=== PATIENT | female | born 1970 | race Caucasian/White ===

== ENCOUNTER → 2017-04-12 | Outpatient (CLI) | payer MEDICAID ==
[2017-04-12 08:50] LABS: Bilirubin, Delta 0.3 mg/dL (0.0-0.2); Total Bilirubin 0.6 mg/dL (0.2-1.3); Total Protein 7.2 g/dL (6.3-8.2)
== END | disposition home or self-care (01) ==
LOC: LABWHC1 07:55
PROVIDERS: ATTEND Internal Medicine
DX: E78.5 Hyperlipidemia, unspecified (principal)
CPT/HCPCS: 36415; 80061; 80076

== ENCOUNTER → 2017-08-17 | Outpatient (CLI) | payer MEDICAID ==
--- NOTE | 2017-08-17 14:40 | MR ---
EXAMINATION TYPE: MR shoulder RT wo con DATE OF EXAM: 08/17/2017 COMPARISON: NONE HISTORY: Rt shoulder pain per order. Pain with difficulty raising overhead for 4 months per patient. TECHNIQUE: Multiplanar, multisequence imaging of the right shoulder is performed without contrast. FINDINGS: Rotator Cuff: There is increased signal distal supraspinatus tendon. There is focal partial bursal an d articular surface tears seen best on paracoronal image 11. This is involving more anterior fibers o n parasagittal images. Adjacent moderate fluid is present in the subdeltoid/subacromial bursa. Infras pinatus tendon is intact and felt within normal limits. Subscapularis tendon is intact. Increased foc al fluid anterior to subscapularis tendon is noted on axial image 14, consider bursitis. Rotator cuff muscle bulk is preserved. Acromioclavicular Joint: Acromioclavicular joint is within normal limits. Distal acromion morphology is maintained. Underlying fat plane is preserved. Glenohumeral Joint: There are small to moderate-sized glenohumeral joint effusion. No significant spu rring is seen. Labrum: The labrum appears grossly intact given limitation of non-arthrogram study. Biceps Tendon: The long head of biceps is in normal location within bicipital groove. Surrounding flu id is felt in proportion to degree of glenohumeral joint effusion. Bone marrow signal: No focal abnormal marrow signal is appreciated. Other: No additional significant abnormality is appreciated. IMPRESSION: High-grade tendinosis and partial tears involving bursal and articular surface of the dis jatin supraspinatus tendon.
== END | disposition home or self-care (01) ==
LOC: RADMRIMAIN 12:00
PROVIDERS: ATTEND Internal Medicine
DX: S46.011A Strain of muscle(s) and tendon(s) of the rotator cuff of right shoulder, initial encounter (principal); M75.81 Other shoulder lesions, right shoulder

== ENCOUNTER → 2018-02-23 | Outpatient (CLI) | payer MEDICAID ==
[2018-02-23 14:33] LABS: Basophils % (A) 0 %; Eosinophils # (A) 0.1 k/uL (0-0.7); Eosinophils % (A) 1 %; HCT 36.3 % (34.0-46.0); HGB 12.1 gm/dL (11.4-16.0); Lymphocytes % (A) 32 %; MCH 32.2 pg (25.0-35.0); MCHC 33.2 g/dL (31.0-37.0); MCV 97.1 fL (80.0-100.0); Mean Platelet Volume 7.3; Monocytes # (A) 0.3 k/uL (0-1.0); Monocytes % (A) 5 %; Neutrophils # (A) 3.7 k/uL (1.3-7.7); Neutrophils % (A) 59 %; Platelet Count 263 k/uL (150-450); RBC 3.74 m/uL (3.80-5.40); RDW 13.5 % (11.5-15.5); WBC 6.2 k/uL (3.8-10.6)
--- NOTE | 2018-02-23 15:39 | XR ---
EXAMINATION TYPE: XR chest 2V DATE OF EXAM: 02/23/2018 COMPARISON: 08/13/2013 HISTORY: 48-year-old female presurgical evaluation TECHNIQUE: Frontal and lateral views FINDINGS: The cardiomediastinal silhouette, aorta, and pulmonary vasculature are within normal limits. Minimal biapical pleural-parenchymal scarring. Otherwise, lungs and pleural spaces are clear. IMPRESSION: No acute cardiopulmonary process.
== END | disposition home or self-care (01) ==
LOC: LABPAT 14:01
PROVIDERS: ATTEND Orthopaedic Surgery
DX: Z01.812 Encounter for preprocedural laboratory examination (principal); M75.41 Impingement syndrome of right shoulder
CPT/HCPCS: 71046; 80051; 85025; 93005

== ENCOUNTER → 2018-03-10 | Day surgery (SDC) | payer MEDICAID ==
[2018-03-07 10:24] VITALS: BMI 24.6
--- NOTE | 2018-03-08 10:14 | HP ---
HISTORY AND PHYSICAL CHIEF COMPLAINT: Right shoulder pain. 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 It has worsened over the past couple months. She notes anterior pain that radiates with overhead activity and at night. She has tried an injection in addition to therapy and medications. PAST MEDICAL HISTORY: Significant for hypertension. PAST SURGICAL HISTORY: Negative. CURRENT MEDICATIONS: 1. Cyclobenzaprine. 2. Ethan. 3. Norvasc. 4. Tramadol. ALLERGIES: She denies drug allergies. FAMILY HISTORY: Family history is negative. SOCIAL HISTORY: Significant for 1/2 pack per day tobacco use. REVIEW OF SYSTEMS: Sixteen-point review of systems otherwise reviewed and is noncontributory. PHYSICAL EXAMINATION: On examination, the patient is approximately 5 feet 3 inches, 140 pounds of mesomorphic habitus. HEENT exam is nonfocal. Neck is supple. On examination of her right shoulder, she is tender about the anterior subacromial space. She has moderate subacromial crepitus. Active range of motion forward elevation 155 degrees, external rotation with arm at side 60 degrees, internal rotation to T12. Motor strength is 5/5 for external rotation with arm at side, 5 minus over 5 for abduction. Shen, Neer and Speed tests are positive. Her distal neurovascular exam otherwise appears intact in the right upper extremity. X-rays to include AP and scapular outlet views of the right shoulder obtained in the office show a type 2 acromion with maintained humeral head to acromial distance. MRI report of the right shoulder shows evidence of a partial-thickness tear of the supraspinatus. IMPRESSION: Right shoulder impingement with possible partial-thickness rotator cuff tear. RECOMMENDATIONS: I talked to the patient at length regarding her treatment options. At this point, she has tried extensive conservative measures with persistence of her symptoms. At this point, she opts to proceed with surgery. We will plan to proceed with arthroscopic evaluation with probable subacromial decompression and possible rotator cuff debridement versus repair. Risks and benefits were discussed at length in layman's terms. We will likely perform that as an outpatient procedure. MMODL / IJN: [id number] /
[~2018-03-10] MED LIST: DEXAMETHASONE SOD PHOSPHATE 10 MG/ML 1 ML VIAL IV ONE; KETOROLAC 30 MG/ML 1 ML VIAL IVP ONE; LACTATED RINGERS 1,000 ML IV ONE; LACTATED RINGERS 1,000 ML IV SCH; LIDOCAINE 1% 20 ML VIAL (10MG/ML) FOR IV START INTRADERMA ONE; LIDOCAINE 1% INJ 10MG/ML (20 ML MDV) ONE; MIDAZOLAM 2 MG/2 ML VIAL IV PRN; MIDAZOLAM 2 MG/2 ML VIAL ONE; ONDANSETRON 4 MG/2 ML VIAL IVP ONE; PROPOFOL 10 MG/ML 20 ML VIAL IV ONE; ROPIVACAINE 5 MG/ML 30 ML VIAL ONE; SCOPOLAMINE 1.5MG/72HR PATCH TRANSDERM ONE; VECURONIUM 10 MG VIAL IV ONE; ceFAZolin 1,000 MG in DEXTROSE/WATER 1 50ML.BAG IV ONE; diphenhydrAMINE 50 MG/ML 1 ML VIAL IVP ONE; ePHEDrine SULFATE/0.9% NACL/PF 50 MG/5 ML SYRINGE IV ONE; fentaNYL (PF) 50 MCG/ML 2 ML AMP IV PRN; fentaNYL (PF) 50 MCG/ML 2 ML AMP ONE
[2018-03-10 06:58] VITALS: TEMP 98.6
--- NOTE | 2018-03-10 07:29 | P.ONQ ---
Anesthesiology Proc Note - PNB - Peripheral Nerve Block Performed Right Interscalene Single Time Out Performed: Yes ([id number]) Procedure Start Time: :15 Procedure Stop Time: :18 Indication: Acute Post-Operative Pain, Dx/Pain Location (Right Shoulder), Requested by physician Sedation Type: Sedate with meaningful contact maintained Preparation: Sterile Prep Position: Supine Catheter: None Needle Size: 50mm (2") Needle Gauge: 20 Technique: Ultrasound Injectate: 0.5% Ropivacaine (see comment for volume) (20ml 0.25% Ropivacaine) Blood Aspirated: No Pain Paresthesia on Injection Noted: No Resistance on Injection: Normal Events: Uneventful and Well Tolerated
--- NOTE | 2018-03-10 09:40 | P.OP ---
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 Her MRI by report showed evidence of a possible partial thickness tear of the rotator cuff. A discussion the risks and benefits of operative intervention versus continued conservative measures was made with the patient. She opted to proceed with surgery. Operative risks to include infection, neurovascular injury, development of blood clots, possible tendon rerupture, possible postoperative stiffness and need for subsequent procedures was discussed. Informed consent was obtained. Operative Findings: As below Description of Procedure: The patient was brought to the operating room, and after induction of general anesthesia examined the right shoulder. There is no gross block to passive motion. There is no gross glenohumeral instability. She is placed in a beachchair position. The bony prominences were appropriately padded. The right upper extremity was prepped and draped in normal fashion. The bony outlines the acromion, distal clavicle, and coracoid process were outlined skin marker. The glenohumeral joint was inflated with 50 mL of saline utilizing a spinal needle from posterior approach. A posterior portals made through a 5 mm skin incision 1 cm medial and inferior to the posterior lateral border of the acromion. A blunt trocar was used to easily into the joint. Diagnostic arthroscopy was performed. On inspection of the joint, the subscapularis appeared to be intact. A type I superior labral tear was noted was significant fraying. This to be back to stable base with a motorized shaver. This is done through an anterior portal was was made through a 5 mm skin incision just lateral to the coracoid process entering the joint above the subscapularis tendon. On inspection of the rotator cuff, a 3 cm tear involving supraspinatus and a portion the infraspinatus was noted with some retraction. The posterior portion the cuff appeared to be intact. The anterior labrum was intact. The inferior recess was inspected. No gross glenohumeral degenerative changes were noted. The arthroscope was then placed into the subacromial space. A lateral portal was made through a 5 mm skin incision 2 cm inferior to the anterolateral border of the acromion. The soft tissue on the undersurface the acromion was debrided with a motorized shaver and electrocautery clearly defining the anterior medial and lateral borders as well as the distal clavicle. The coracoacromial ligament was detached from the anterior acromion with electrocautery. An anterior inferior acromioplasty is performed with a motorized gloria starting anterolateral, then extending this posteriorly, then extending this medially. I was able to convert to a flat acromion. This was verified from the posterior and lateral viewing portals. On inspection the rotator cuff this is easily mobilized back to the greater tuberosity. The greater tuberosity was lightly decorticated utilizing a motorized gloria down to bleeding bony surface. I accessory superior lateral portal was made through a 4 mm skin incision just lateral to the acromion. The appropriate starting awl was utilized for placement of 4.75 mm swivel lock anchors just off the articular surface. Good purchase was obtained. #2 fiber tape that was preloaded was passed through the rotator cuff with a scorpion suture passer. A lateral row was then created crisscrossing these fiber tapes. 2 4.75 millimeter anchors were placed. Again good purchase was obtained. Final arthroscopic view showed adequate synagogue of the footprint with compression. The arthroscope was then removed. The portals were closed with simple 3-0 nylon sutures. A sterile dressing was applied in addition to an abductor brace. The patient was then awoken from general anesthesia and transferred to recovery room in good condition. Blood loss was estimated at 10 mL. No complications were incurred. Sponge and needle counts were correct at the end the case.
[2018-03-10 10:25] VITALS: RESP 16
[2018-03-10 11:09] VITALS: BP 153/96; PULSE 76
== END | disposition home or self-care (01) ==
LOC: OR 06:04
PROVIDERS: ATTEND Orthopaedic Surgery
DX: M75.41 Impingement syndrome of right shoulder (principal); M75.121 Complete rotator cuff tear or rupture of right shoulder, not specified as traumatic; S43.431A Superior glenoid labrum lesion of right shoulder, initial encounter; F17.210 Nicotine dependence, cigarettes, uncomplicated; I10 Essential (primary) hypertension; Z79.891 Long term (current) use of opiate analgesic; Z79.899 Other long term (current) drug therapy; Z79.1 Long term (current) use of non-steroidal anti-inflammatories (NSAID)
CPT/HCPCS: 81025; 29827; 29826; 29822; 64415; C1713; C1894; J2250; J1200; J1100; J2405; J2001; J3010; J1885; J0690; J2795; J2704

== ENCOUNTER → 2018-12-01 | Outpatient (CLI) | payer MEDICAID ==
[2018-12-01 10:22] LABS: Basophils % (A) 0 %; Eosinophils # (A) 0.1 k/uL (0-0.7); Eosinophils % (A) 1 %; HCT 35.7 % (34.0-46.0); HGB 11.7 gm/dL (11.4-16.0); Lymphocytes # (A) 1.7 k/uL (1.0-4.8); Lymphocytes % (A) 29 %; MCH 32.6 pg (25.0-35.0); MCHC 32.8 g/dL (31.0-37.0); MCV 99.2 fL (80.0-100.0); Monocytes # (A) 0.3 k/uL (0-1.0); Monocytes % (A) 5 %; Neutrophils # (A) 3.5 k/uL (1.3-7.7); Neutrophils % (A) 60 %; Platelet Count 217 k/uL (150-450); WBC 5.8 k/uL (3.8-10.6)
[2018-12-01 18:36] LABS: Albumin 4.3 g/dL (3.80-4.90); Albumin/Globulin Ratio 2.53 (1.20-2.10); Anion Gap 7.6 mmol/L (4.00-12.00); Calcium 9.3 mg/dL (8.7-10.3); Carbon Dioxide 26.4 mmol/L (21.6-31.8); Globulin 1.7 g/dL (1.6-3.3); LDL Cholesterol,Calculated 62.4 mg/dL (0.0-131.0); Total Bilirubin 0.5 mg/dL (0.3-1.2); VLDL Calculation 17.6 mg/dL (5.00-40.00)
== END ==
LOC: LABWHC1 09:08
PROVIDERS: ATTEND Internal Medicine
DX: Z00.00 Encounter for general adult medical examination without abnormal findings (principal); I10 Essential (primary) hypertension; E55.9 Vitamin D deficiency, unspecified
CPT/HCPCS: 36415; 80053; 80061; 82306; 85025

== ENCOUNTER → 2019-01-02 | Outpatient (CLI) | payer MEDICAID ==
--- NOTE | 2019-01-02 10:23 | ECHOF ---
Referral Reason:R01.1 undiagnosed cardiac murmurs MEASUREMENTS -------- HEIGHT: 160.0 cm WEIGHT: 65.3 kg BP: RVIDd: 2.2 cm (< 3.3) IVSd: 0.9 cm (0.6 - 1.1) LVIDd: 4.7 cm (3.9 - 5.3) LVPWd: 1.2 cm (0.6 - 1.1) IVSs: 1.2 cm LVIDs: 3.5 cm LVPWs: 1.6 cm LA Diam: 3.0 cm (2.7 - 3.8) LAESV Index (A-L): 28.01 ml/m Ao Diam: 2.2 cm (2.0 - 3.7) AV Cusp: 1.5 cm (1.5 - 2.6) LA Diam: 3.0 cm (2.7 - 3.8) MV EXCURSION: 23.991 mm (> 18.000) MV EF SLOPE: 84 mm/s (70 - 150) EPSS: 0.4 cm MV E Remi: 0.57 m/s MV DecT: 217 ms MV A Remi: 0.71 m/s MV E/A Ratio: 0.81 RAP: 5.00 mmHg RVSP: 22.37 mmHg FINDINGS -------- Sinus rhythm. This was a technically good study. LV size, wall thickness and systolic function are normal, with an EF greater than 55%. The left zaira tricular size is normal. The right ventricle is normal in size. The left atrial size is normal. The right atrial size is normal. The aortic valve is trileaflet, and appears structurally normal. No aortic stenosis or regurgitation. Mild mitral regurgitation is present. Mild tricuspid regurgitation present. There is no evidence of pulmonary hypertension. The right v entricular systolic pressure, as measured by Doppler, is 22.37mmHg. There is no pulmonic regurgitation present. The aortic root size is normal. There is no pericardial effusion. CONCLUSIONS -------- 1. LV size, wall thickness and systolic function are normal, with an EF greater than 55%. 2. The left ventricular size is normal. 3. The right ventricle is normal in size. 4. The left atrial size is normal. 5. The right atrial size is normal. 6. The aortic valve is trileaflet, and appears structurally normal. No aortic stenosis or regurgitati on. 7. Mild mitral regurgitation is present. 8. Mild tricuspid regurgitation present. 9. There is no evidence of pulmonary hypertension. 10. The right ventricular systolic pressure, as measured by Doppler, is 22.37mmHg. 11. There is no pulmonic regurgitation present. 12. The aortic root size is normal. 13. There is no pericardial effusion. BACK MAKER: Tiffanie Donnelly RDCS
== END | disposition home or self-care (01) ==
LOC: RADECHMAIN 08:21
PROVIDERS: ATTEND Internal Medicine
DX: I08.1 Rheumatic disorders of both mitral and tricuspid valves (principal)
CPT/HCPCS: 93306

== ENCOUNTER → 2019-01-22 | Outpatient (CLI) | payer MEDICAID ==
--- NOTE | 2019-01-23 10:07 | MM ---
Reason for exam: screening (asymptomatic). Last mammogram was performed 2 years and 4 months ago. History: Patient is nulliparous. Physical Findings: A clinical breast exam by your physician is recommended on an annual basis and results should be correlated with mammographic findings. MG 3D Screening Mammo W/Cad Bilateral CC and MLO view(s) were taken. Prior study comparison: October 05, 2016, bilateral MG 3d screening mammo w/cad. The breast tissue is extremely dense which could obscure a lesion on mammography. Finding: There are typically benign round, regional calcifications in both breasts. There is no discrete abnormality. ASSESSMENT: Benign, BI-RAD 2 RECOMMENDATION: Routine screening mammogram of both breasts in 1 year.
== END | disposition home or self-care (01) ==
LOC: RADMAMWWP 10:48
PROVIDERS: ATTEND Internal Medicine
DX: Z12.31 Encounter for screening mammogram for malignant neoplasm of breast (principal)
CPT/HCPCS: 77063; 77067

== ENCOUNTER 2020-02-02 | Emergency (ER) | payer MEDICAID | END 2020-02-02 13:03 | disposition home or self-care (01) | CPT/HCPCS: 71046; 87502; 99283 ==

== ENCOUNTER → 2021-08-27 | Outpatient (CLI) | payer MEDICAID, OTHER | END | disposition home or self-care (01) | LOC: LABWHC1 12:29 | PROVIDERS: ATTEND Emergency Medicine | DX: Z20.822 Contact with and (suspected) exposure to COVID-19 (principal) | CPT/HCPCS: 87635 ==

== ENCOUNTER → 2021-08-28 | Outpatient (CLI) | payer MEDICAID, OTHER | END | disposition home or self-care (01) | LOC: LABWHC1 12:40 | PROVIDERS: ATTEND Emergency Medicine | DX: Z20.822 Contact with and (suspected) exposure to COVID-19 (principal) | CPT/HCPCS: 87635 ==

== ENCOUNTER → 2021-10-06 | Outpatient (CLI) | payer MEDICAID, OTHER | END | disposition home or self-care (01) | LOC: LABWHC1 12:57 | PROVIDERS: ATTEND Emergency Medicine | DX: Z53.9 Procedure and treatment not carried out, unspecified reason (principal) ==

== ENCOUNTER → 2023-02-07 | Outpatient (CLI) | payer MEDICAID ==
--- NOTE | 2023-02-08 07:22 | MR ---
EXAMINATION TYPE: MR foot RT wo con DATE OF EXAM: 02/07/2023 COMPARISON: None. HISTORY: Right foot pain, and limited movement for 1 year. Standard multiplanar, multisequence MRI departmental protocol Multiplanar, multisequence images of the right foot were acquired without contrast. FINDINGS: Visualized plantar fascia appears within normal limits. Visualized Achilles tendon is unrem arkable. Ankle mortise symmetry is preserved. Normal sinus tarsi fat is seen. Small tibiotalar joint effusion is presumed physiologic. Midfoot joints show mild narrowing and spurring. No suspicious osseous edema is seen. Lisfranc joints are maintained. Slight hallux valgus positioning first metatarsophalangeal joint. The Castaneda's toe is present. There is some flexion and varus positioning of the distal third through fifth toes. Muscle bulk is maintained. No suspicious focal fluid collection or hematoma is seen. No significant s oft tissue swelling or subcutaneous edema is noted. IMPRESSION: No abnormal osseous edema. No obvious finding to account for patient's symptoms.
== END | disposition home or self-care (01) ==
LOC: RADMRIMAIN 15:22
PROVIDERS: ATTEND Podiatrist
DX: M24.174 Other articular cartilage disorders, right foot (principal)

== ENCOUNTER → 2023-02-11 | Outpatient (CLI) | payer MEDICAID ==
[2023-02-11 18:47] LABS: HGB 13.1 g/dL (12.0-15.0); MCH 31.8 pg (27.0-32.0); MCHC 32.8 g/dL (32.0-37.0); MCV 97.1 fL (80.0-97.0); NRBC Per 100 WBC 0 /100 WBCS (0.0-0.0); Platelet Count 270 X 10*3/uL (140-440); RBC 4.12 X 10*6/uL (4.10-5.20); RDW 12.8 % (11.5-14.5); WBC 9.98 X 10*3/uL (4.50-10.00)
[2023-02-11 19:22] LABS: African American GFR (CKD) 98.9 (60.0-200.0); Non-African American GFR(CKD) 85.4 (60.0-200.0)
[2023-02-11 19:23] LABS: Anion Gap 11.1 mmol/L (10.00-18.00); Blood Urea Nitrogen 16.5 mg/dL (9.0-27.0); Carbon Dioxide 25.9 mmol/L (20.0-27.5); Potassium 4.6 mmol/L (3.5-5.5)
== END | disposition home or self-care (01) ==
LOC: LABPAT 10:47
PROVIDERS: ATTEND Internal Medicine
DX: Z01.812 Encounter for preprocedural laboratory examination (principal); R07.9 Chest pain, unspecified; R06.02 Shortness of breath
CPT/HCPCS: 36415; 80051; 82565; 84520; 85027

== ENCOUNTER 2023-02-14 09:28 | Day surgery (SDC) | payer MEDICAID ==
[~2023-02-14 09:28] MED LIST changes: +ALPRAZolam 0.25 MG TAB PO PRN; +ALPRAZolam 0.5 MG TAB PO PRN; +ASPIRIN 325 MG TAB PO STA; -DEXAMETHASONE SOD PHOSPHATE 10 MG/ML 1 ML VIAL IV ONE; -KETOROLAC 30 MG/ML 1 ML VIAL IVP ONE; -LACTATED RINGERS 1,000 ML IV ONE; -LACTATED RINGERS 1,000 ML IV SCH; -LIDOCAINE 1% 20 ML VIAL (10MG/ML) FOR IV START INTRADERMA ONE; -LIDOCAINE 1% INJ 10MG/ML (20 ML MDV) ONE; -MIDAZOLAM 2 MG/2 ML VIAL IV PRN; -MIDAZOLAM 2 MG/2 ML VIAL ONE; +NITROGLYCERIN SL TABS 0.4 MG TAB SUBLINGUAL PRN; -ONDANSETRON 4 MG/2 ML VIAL IVP ONE; -PROPOFOL 10 MG/ML 20 ML VIAL IV ONE; -ROPIVACAINE 5 MG/ML 30 ML VIAL ONE; -SCOPOLAMINE 1.5MG/72HR PATCH TRANSDERM ONE; +SODIUM CHLORIDE 0.9% 1,000 ML in EMPTY BAG 1 BAG IV SCH; -VECURONIUM 10 MG VIAL IV ONE; -ceFAZolin 1,000 MG in DEXTROSE/WATER 1 50ML.BAG IV ONE; -diphenhydrAMINE 50 MG/ML 1 ML VIAL IVP ONE; -ePHEDrine SULFATE/0.9% NACL/PF 50 MG/5 ML SYRINGE IV ONE; -fentaNYL (PF) 50 MCG/ML 2 ML AMP IV PRN; -fentaNYL (PF) 50 MCG/ML 2 ML AMP ONE
[2023-02-14 10:08] VITALS: RESP 18; TEMP 98.4
[2023-02-14 10:27] LABS: Basophils # (A) 0.1 k/uL (0-0.2); Basophils % (A) 1 %; Eosinophils # (A) 0.1 k/uL (0-0.7); Eosinophils % (A) 1 %; HCT 41.4 % (34.0-46.0); HGB 14.3 gm/dL (11.4-16.0); Lymphocytes # (A) 2.1 k/uL (1.0-4.8); Lymphocytes % (A) 25 %; MCH 32.8 pg (25.0-35.0); MCHC 34.5 g/dL (31.0-37.0); MCV 95.1 fL (80.0-100.0); Mean Platelet Volume 7.7; Monocytes # (A) 0.4 k/uL (0-1.0); Monocytes % (A) 4 %; Neutrophils # (A) 5.4 k/uL (1.3-7.7); Neutrophils % (A) 65 %; Platelet Count 251 k/uL (150-450); RBC 4.35 m/uL (3.80-5.40); RDW 13.2 % (11.5-15.5); WBC 8.3 k/uL (3.8-10.6)
[2023-02-14 10:29] LABS: African American GFR (CKD) >90 (>60 ml/min/1.73 sqM); Anion Gap 8 mmol/L; Blood Urea Nitrogen 17 mg/dL (7-17); Calcium 9.4 mg/dL (8.4-10.2); Carbon Dioxide 25 mmol/L (22-30); Chloride 105 mmol/L (98-107); Glucose 93 mg/dL (74-99); Non-African American GFR(CKD) >90 (>60 ml/min/1.73 sqM); Potassium 4.2 mmol/L (3.5-5.1); Sodium 138 mmol/L (137-145)
[2023-02-14] MEDS ORDERED: fentaNYL (PF) 50 MCG/ML 2 ML AMP ONE (11:52)
[2023-02-14] MEDS ORDERED: HEPARIN SODIUM 1,000 UN/ML (10ML VL) ONE (11:52)
[2023-02-14] MEDS ORDERED: VERAPAMIL 2.5 MG/ML 2 ML AMP ONE (11:53)
[2023-02-14] MEDS ORDERED: LIDOCAINE 1% INJ 10MG/ML (5 ML VIAL-PF) SQ ONE (12:25)
[2023-02-14] MEDS: MIDAZOLAM 2 MG/2 ML VIAL IVP ONE ×2 (12:25→12:26)
[2023-02-14] MEDS ORDERED: fentaNYL (PF) 50 MCG/ML 2 ML AMP IVP ONE (12:25)
[2023-02-14] MEDS: VERAPAMIL SYRINGE (5 MG/10 ML) INTRAARTER ONE ×2 (12:27→12:31)
[2023-02-14] MEDS ORDERED: HEPARIN SODIUM 1,000 UN/ML (10ML VL) IVP ONE (12:30)
[2023-02-14] MEDS ORDERED: IOPAMIDOL-370 125ML BTL INJ ONE (12:34)
--- NOTE | 2023-02-14 12:59 | P.CARDCATH ---
Description of Procedure: PROCEDURES PERFORMED: Left heart catheterization, bilateral coronary angiography INDICATION: Chest pain concerning for unstable angina CONSENT:I have discussed the risks, benefits and alternative therapies for the above-mentioned procedure and for both sedation/analgesia as well as necessary blood product administration, if indicated, as they pertain to this patient. The patient has indicated understanding and acceptance of the risks and procedures discussed. PROCEDURE: After the risks, benefits and alternatives of the above mentioned procedure explained in detail with the patient, informed consent was obtained. Patient was taken to the catheterization lab and prepped and draped in usual fashion. 1% lidocaine was used to anesthetize the right radial artery. A 6- Swedish sheath was placed in the right radial artery using modified Seldinger technique. Left coronary angiography was performed with a 5-Swedish JL 3.5 cath eter and right coronary angiography was performed with a 5-Swedish JR5 catheter in various views. A 5-Swedish FR5 catheter was inserted into the left ventricle and pressure measurements were obtained. The right radial sheath was removed and a TR band was placed with hemostasis achieved. The patient tolerated the procedure well. Patient was transported back to the post catheterization holding area in stable condition. Conscious Sedation: Patient was monitored under the direct supervision of vision of myself for conscious sedation using Versed and fentanyl for a total duration of 12 minutes HEMODYNAMICS: AO: 114/76 LV: 122/3, LVEDP 11 SELECTIVE CORONARY ARTERIOGRAPHY: LEFT MAIN: The left main is a large caliber vessel which trifurcates into the LAD, ramus and circumflex. There is no significant stenosis. LEFT ANTERIOR DESCENDING CORONARY ARTERY: LAD is a large caliber vessel which wraps around to the apex. There is no significant stenosis. RAMUS INTERMEDIUS: The ramus is large caliber vessel with no significant stenosis. LEFT CIRCUMFLEX CORONARY ARTERY: Left circumflex is a moderate caliber vessel without significant stenosis. RIGHT CORONARY ARTERY: The right coronary artery is a large caliber vessel which gives off a PDA and PLV branch and is the dominant vessel. There is no significant stenosis. FINAL IMPRESSION: 1. Normal coronary arteries as described above. 2. Normal left sided filling pressures PLAN: 1. Aggressive risk factor modification per most recent ACC/AHA guidelines. 2. Follow-up in the office in 1-2 weeks.
[2023-02-14 15:55] VITALS: BP 112/76; PULSE 56
== END 2023-02-14 15:57 | disposition home or self-care (01) ==
LOC: CATHCVL 09:28
PROVIDERS: ATTEND Internal Medicine
DX: R07.9 Chest pain, unspecified (principal); I10 Essential (primary) hypertension; F17.210 Nicotine dependence, cigarettes, uncomplicated; Z82.49 Family history of ischemic heart disease and other diseases of the circulatory system; Z79.82 Long term (current) use of aspirin
CPT/HCPCS: 93458; 80048; 85025; C1769; C1894; J2250; J2001; J3010; J1644; Q9967

== ENCOUNTER → 2023-02-15 | Outpatient (CLI) | payer MEDICAID ==
--- NOTE | 2023-02-15 08:49 | US ---
EXAMINATION TYPE: US liver DATE OF EXAM: 02/15/2023 COMPARISON: CT Low Dose January 28, 2023 CLINICAL HISTORY: K76.89 LIVER NODULE. TECHNIQUE: Multiple sonographic images of the right upper quadrant are obtained. FINDINGS: EXAM MEASUREMENTS: Liver Length: 13.5 cm Gallbladder Wall: 0.3 cm CBD: 0.4 cm Right Kidney: 10.6 x 4.9 x 4.9 cm EXERCISE INSTRUCTOR NOTES: Pancreas: visualized portions wnl Liver: 1.3 x 1.1 x 1.9 cm cystic lesion with through transmission located upper left lobe. Gallbladder: at least two small non shadowing echogenic mobile stones/sludge balls Evidence for sonographic Sheldon's sign: No CBD: wnl Right Kidney: 1.3 x 1.0 x 1.3 cm parapelvic cyst. Visualized pancreas appears within normal limits. Visualized liver shows anterior 1.3 cm oval anechoi c lesion consistent with a simple thin-walled cyst. Gallbladder has 2 mobile tiny shadowing gallstone s. No pericholecystic fluid or abnormal gallbladder wall thickening. No right-sided hydronephrosis. I ncidental 1.3 cm Central simple thin-walled cyst in the right kidney. IMPRESSION: Lesion on recent CT is felt to correspond to 1.3 cm simple appearing thin-walled cyst ant eriorly on today's ultrasound.
== END | disposition home or self-care (01) ==
LOC: RADUSWWP 08:06
PROVIDERS: ATTEND Internal Medicine
DX: K76.89 Other specified diseases of liver (principal)
CPT/HCPCS: 76705

== ENCOUNTER → 2024-01-30 | Outpatient (CLI) | payer MEDICAID ==
--- NOTE | 2024-01-30 08:57 | USB ---
Reason for Exam: Additional evaluation requested from prior study. Patient History: Menarche at age 15. Patient has no children. Risk Values: Marti 5 year model risk: 1.1%. NCI Lifetime model risk: 9.7%. Technique: Method: Targeted. Prior Study Comparison: 10/05/2016 Bilateral Screening Mammogram, [facility]. 01/22/2019 Bilateral Screening Mammogram, [facility]. 12/30/2022 Bilateral MG 3D screening mammo w/cad, [facility]. Findings: The upper inner quadrant of the right breast, the lower section of the breast of the right breast, the axilla of the right breast and the retroareolar of the right breast were scanned. A complete US of all four quadrants of the breast , axilla, and retro-areolar region were reviewed. At the 2:00 position, 3 cm from the nipple, possible mammographic correlate, there is an irregular 10 x 8 x 7 mm hypoechoic lesion which is suspicious. Biopsy is recommended. At the 3:00 position, 7 cm from the nipple, benign 6 mm debris-filled cyst. At the 6:00 position, 2 cm from the nipple, there is a benign 5 mm cyst, possible mammographic correlate. Dense tissue is present throughout. No other solid or cystic lesion or axillary lymphadenopathy. Overall Assessment: Suspicious, BI-RAD 4 Management: Ultrasound Core Biopsy of the right breast. Electronically signed and approved by: Evaristo Oscar M.D. Radiologist
--- NOTE | 2024-01-30 11:27 | US ---
EXAMINATION TYPE: US abdomen limited DATE OF EXAM: 01/30/2024 COMPARISON: 02/15/2023 CLINICAL INDICATION: Female, 53 years old with history of R92.30 DENSE BREASTS, K76.89 LIVER NODULE; F/U to previous TECHNIQUE: Multiple sonographic images of the right upper quadrant are obtained. FINDINGS: EXAM MEASUREMENTS: Liver Length: 14.8 cm Gallbladder Wall: .2 cm CBD: .5 cm Right Kidney: 10.0 x 5.1 x 3.9 cm Pancreas: Tail obscured by overlying bowel gas Liver: Benign cyst anteriorly measuring 1.3 x 0.7 x 1.5 cm. Mild increased echogenicity. Gallbladder: Multiple mural-based echogenic nodules are present measuring up to 4 mm there is on the se are located along the anterior wall and fixed. No abnormal distention, wall thickening, or surroun ding fluid. Evidence for sonographic Murnoy's sigwnl no CBD: wnl Right Kidney: Benign 1.3 cm lower pole parapelvic cyst. An adjacent tiny 3 mm echogenic focus, possi ble calcification. No hydronephrosis. RESSION: 1. Scattered multiple gallbladder wall polyps measuring up to 4 mm appear more numerous. Recommend ad ditional 6-12 month follow-up to reassess. 2. Redemonstrated benign hepatic cyst measuring 1.5 cm. 3. There may be mild hepatic steatosis. Correlate with LFTs, lipid profile, and patient risk factors.
== END | disposition home or self-care (01) ==
LOC: RADMAMWWP 06:54
PROVIDERS: ATTEND Internal Medicine
DX: R92.30 Dense breasts, unspecified (principal); K76.89 Other specified diseases of liver; K82.4 Cholesterolosis of gallbladder
CPT/HCPCS: 76705; 77062; 77066

== ENCOUNTER → 2024-02-06 | Outpatient (CLI) | payer MEDICAID ==
--- NOTE | 2024-02-07 09:41 | CTL ---
EXAMINATION TYPE: CT Low Dose Lung DATE OF EXAM: 02/06/2024 9:42 AM CLINICAL INDICATION:Female, 54 years old with history of Z12.2 SCREENING LUNG CA F17.210 CURRENT SMOK ER; smoker , history of tobacco use. COMPARISON: 01/28/[address] TECHNIQUE: Multiple axial non-contrast scans were obtained from approximately the lung apices through the upper abdomen. Coronal and sagittal reformatted images were obtained. Low dose technique was uti lized. CT DLP: 84.2 mGycm, Automated exposure control for dose reduction was used. CT Contrast: Contrast used: None Oral contrast used: None FINDINGS: ======== Lack of intravenous contrast and low dose technique limits the evaluation of the vascular and soft ti ssue structures. LUNGS: No evidence of pulmonary fibrosis. No evidence of focal consolidation, pneumothorax or pleural effusion. Sizable nodules (> 6 mm): RUL: None. RML: None. RLL: None. GREGORY: None. LLL: None. AIRWAY: Patent and unremarkable. HEART: Size within normal limits. MEDIASTINUM: No gross evidence of adenopathy. VASCULATURE: No aortic aneurysm. MUSCULOSKELETAL: No acute osseous abnormalities SOFT TISSUES/LYMPH NODES: Unremarkable. LOWER NECK: No significant findings. UPPER ABDOMEN: Liver cyst is identified and stable. No acute findings in the abdomen. IMPRESSION: 1. No clinically significant pulmonary nodules. CT LUNG RAD AND CT CHEST RECOMMENDATION: Lung-Rad 2 Benign Appearance or Behavior: Continue annual sc reening with LDCT in 12 months. S Modifier (other clinically significant findings): None. Recommend smoking cessation (if current smoker), or continuation of smoking cessation (if prior smoke r). Annual screening for lung cancer with low-dose computed tomography is recommended in adults ages 55 to 77 years who have a 30 pack-year smoking history and currently smoke or have quit within the pa st 15 years. Screening should be discontinued once a person has not smoked for 15 years or develops a health problem that substantially limits life expectancy or the ability or willingness to have curat connie lung surgery. Lung rads 2021 [email or web address]
== END | disposition home or self-care (01) ==
LOC: RADCTMAIN 09:25
PROVIDERS: ATTEND Internal Medicine
DX: Z12.2 Encounter for screening for malignant neoplasm of respiratory organs (principal); F17.210 Nicotine dependence, cigarettes, uncomplicated
CPT/HCPCS: 71271

== ENCOUNTER → 2024-02-09 | Day surgery (SDC) | payer MEDICAID | LOC: RADUSWWP 12:38 | PROVIDERS: ATTEND Surgery | DX: N60.81 Other benign mammary dysplasias of right breast (principal) | CPT/HCPCS: 77065; 19083; A4648; 88305; 88341; 88342 ==

== ENCOUNTER → 2024-02-24 | Outpatient (CLI) | payer MEDICAID ==
[2024-02-24 14:13] VITALS: BP 139/84; PULSE 67; RESP 15; TEMP 98.3
--- NOTE | 2024-02-24 14:21 | P.GSCN ---
History of Present Illness Consult date: 02/24/24 Reason for Consult: Abnormal right breast ultrasound/intraductal papilloma right breast Requesting physician: John Moses History of present illness: Kristy is a 54-year-old white female seen in consultation for Dr. Moses regarding an ultrasound-guided core biopsy of the right breast. She underwent a bilateral mammogram on 01-30-2024. This revealed an area of concern in the right breast and diagnostic right breast ultrasound was recommended. She underwent a diagnostic right breast ultrasound on 01-30-2024 this revealed at the 2 o'clock position 3 cm from the nipple an irregular 10 x 8 x 7 mm hypoechoic lesion which was considered suspicious. Biopsy was recommended. At the 3 o'clock position there was a 6 mm debris-filled cyst At the 6 o'clock position there was a 5 mm cyst possible mammographic correlate The impression was abnormal lesion at 2:00 and ultrasound core biopsy recommended. Ultrasound core biopsy was performed of this area on 02-09-2024. Pathology revealed a benign intraductal papilloma. However secondary to the size of the lesion there was concern that this may be discordant and that an open biopsy with resection should be recommended. The patient had a bilateral mammogram on 01-30-2024 she did not feel anything in her breast prior to the mammogram. She has never had any surgery on her breast. She is not complaining of any recent trauma or infection in the breast. She is not complaining of any nipple discharge or skin changes. Caffeine: 3 cups coffee/day nicotine: 1/2 PPD for 30 years chocolate: occasional BCP: used about 10 years stoped in her 30's hormones: none Family History: paternal grandmother: lung smoker paternal aunt: brain cancer Hormonal History: menarche: 15 G1A1 menopause: 53 hormones: none Surgical history: Rotator cuff repair right Medical history: HTN GERD cervical disc disease Social History: nicotine: as above alcohol: occasional 2 to 3 times a week, wine drugs: none Review of Systems - Constitutional Denies fever, Denies weight loss - EENT Eyes: denies blurred vision Ears: deny: decreased hearing, tinnitus Ears, nose, mouth and throat: Denies dysphagia - Cardiovascular Denies chest pain, Denies shortness of breath - Respiratory Denies cough, Denies 7 - Gastrointestinal Reports as per HPI - Genitourinary Genitourinary: Denies dysuria, Denies hematuria Menstruation: Reports postmenopausal - Musculoskeletal Reports as per HPI - Integumentary Denies rash, Denies unusual bruising - Neurological Denies headaches, Denies syncope - Psychiatric Reports as per HPI - Endocrine Reports as per HPI - Hematologic/Lymphatic Denies easy bleeding, Denies easy bruising - Allergic/Immunologic Reports seasonal allergies Past Medical History Past Medical History: Chest Pain / Angina, GERD/Reflux, Hypertension History of Any Multi-Drug Resistant Organisms: None Reported Past Surgical History: Heart Catheterization Additional Past Surgical History / Comment(s): rt rotator cuff surgery . Heart cath Past Anesthesia/Blood Transfusion Reactions: No Reported Reaction Past Psychological History: No Psychological Hx Reported Smoking Status: Current every day smoker Past Alcohol Use History: Occasional Additional Past Alcohol Use History / Comment(s): smoked 30 yrs 1/2 ppd Past Drug Use History: Marijuana Additional Drug Use History / Comment(s): smoked THC in her 20's - Past Family History Father Family Medical History: No Reported History Medications and Allergies Home Medications Medication Instructions Recorded Confirmed Type Ibuprofen [Motrin] 600 mg PO DAILY PRN 03/07/18 02/24/24 History amLODIPine BESYLATE [Norvasc] 10 mg PO DAILY 03/07/18 02/24/24 History traMADol HCL [Ultram] 50 mg PO DAILY PRN 03/07/18 02/24/24 History Omeprazole 20 mg PO DAILY 02/11/23 02/24/24 History Allergies Allergy/AdvReac Type Severity Reaction Status Date / Time No Known Allergies Allergy Verified 02/24/24 13:33 Surgical - Exam Vital Signs Temp Pulse Resp BP Pulse Ox 98.3 F 67 15 139/84 96 02/24/24 13:34 02/24/24 13:34 02/24/24 13:34 02/24/24 13:34 02/24/24 13:34 - General no distress - Eyes normal ocular movement - Neck trachea midline - Respiratory normal respiratory effort, clear to auscultation - Cardiovascular Rhythm: regular Heart Sounds: normal: S1, S2 - Abdomen Abdomen: soft, non tender, no guarding, no rigid, no rebound - Integumentary normal turgor - Neurologic no disoriented, no combative - Musculoskeletal normal gait - Psychiatric oriented to time, oriented to person, oriented to place, speech is normal, memory intact Breast Exam: BRA: 38C Inspection: Bilateral grade 1 ptosis Palpation: Right breast: Multi positional exam no dominant masses or nodules of concern Right axilla: No adenopathy of concern Left breast: Multi positional exam no dominant masses or nodules of concern Left axilla: No adenopathy of concern Biopsy site right breast clean and dry no evidence of infection or hematoma Results mammogram and ultrasound personally reviewed, pathology report personally reviewed Assessment and Plan Assessment: Impression: Radiographic abnormality right breast/consistent with intraductal papilloma, however this is approximately a centimeter in size and question bleed discordant Plan: Right breast needle localization lumpectomy with possible oncoplastic tissue transfer Risk and benefits of the procedure discussed with the patient. Risk include but are not limited to bleeding, infection, reaction to the anesthetic. If the tis chantel acquisition were felt to be discordant then further tissue acquisition may be necessary at a later time. Additionally if the needle were to slip or the marker were to move it is possible that the area of concern would not be sampled and we would have to get more tissue at a later time. The patient understands and wishes to proceed. CC: Dr. Moses
== END ==
LOC: WWCWWP 12:53
PROVIDERS: ATTEND Surgery
DX: R92.8 Other abnormal and inconclusive findings on diagnostic imaging of breast (principal); D24.1 Benign neoplasm of right breast; F17.210 Nicotine dependence, cigarettes, uncomplicated

== ENCOUNTER → 2024-05-04 | Outpatient (CLI) | payer MEDICAID ==
[2024-05-04 14:39] VITALS: BP 127/79; PULSE 84; RESP 16; TEMP 98.5
--- NOTE | 2024-05-04 14:42 | P.PN ---
Subjective Progress Note Date: 05/04/24 Principal diagnosis: intraductal papilloma Abnormal right breast ultrasound/intraductal papilloma right breast Requesting physician: John Moses History of present illness: Kristy is a 54-year-old white female seen in consultation for Dr. Moses regarding an ultrasound-guided core biopsy of the right breast. She underwent a bilateral mammogram on 01-30-2024. This revealed an area of concern in the right breast and diagnostic right breast ultrasound was recommended. She underwent a diagnostic right breast ultrasound on 01-30-2024 this revealed at the 2 o'clock position 3 cm from the nipple an irregular 10 x 8 x 7 mm hypoechoic lesion which was considered suspicious. Biopsy was recommended. At the 3 o'clock position there was a 6 mm debris-filled cyst At the 6 o'clock position there was a 5 mm cyst possible mammographic correlate The impression was abnormal lesion at 2:00 and ultrasound core biopsy recommended. Ultrasound core biopsy was performed of this area on 02-09-2024. Pathology revealed a benign intraductal papilloma. However secondary to the size of the lesion there was concern that this may be discordant and that an open biopsy with resection should be recommended. The patient had a bilateral mammogram on 01-30-2024 she did not feel anything in her breast prior to the mammogram. She has never had any surgery on her breast. She is not complaining of any recent trauma or infection in the breast. She is not complaining of any nipple discharge or skin changes. Caffeine: 3 cups coffee/day nicotine: 1/2 PPD for 30 years chocolate: occasional BCP: used about 10 years stoped in her 30's hormones: none Family History: paternal grandmother: lung smoker paternal aunt: brain cancer Hormonal History: menarche: 15 G1A1 menopause: 53 hormones: none Surgical history: Rotator cuff repair right Medical history: HTN GERD cervical disc disease Social History: nicotine: as above alcohol: occasional 2 to 3 times a week, wine drugs: none Review of Systems - Constitutional Denies fever, Denies weight loss - EENT Eyes: denies blurred vision Ears: deny: decreased hearing, tinnitus Ears, nose, mouth and throat: Denies dysphagia - Cardiovascular Denies chest pain, Denies shortness of breath - Respiratory Denies cough - Gastrointestinal Reports as per HPI - Genitourinary Genitourinary: Denies dysuria, Denies hematuria Menstruation: Reports postmenopausal - Musculoskeletal Reports as per HPI - Integumentary Denies rash, Denies unusual bruising - Neurological Denies headaches, Denies syncope - Psychiatric Reports as per HPI - Endocrine Reports as per HPI - Hematologic/Lymphatic Denies easy bleeding, Denies easy bruising - Allergic/Immunologic Reports seasonal allergies Past Medical History Past Medical History: Chest Pain / Angina, GERD/Reflux, Hypertension History of Any Multi-Drug Resistant Organisms: None Reported Past Surgical History: Heart Catheterization Additional Past Surgical History / Comment(s): rt rotator cuff surgery . Heart cath Past Anesthesia/Blood Transfusion Reactions: No Reported Reaction Past Psychological History: No Psychological Hx Reported Smoking Status: Current every day smoker Past Alcohol Use History: Occasional Additional Past Alcohol Use History / Comment(s): smoked 30 yrs 1/2 ppd Past Drug Use History: Marijuana Additional Drug Use History / Comment(s): smoked THC in her 20's - Past Family History Father Family Medical History: No Reported History Medications and Allergies Home Medications Medication Instructions Recorded Confirmed Type Ibuprofen [Motrin] 600 mg PO DAILY PRN 03/07/18 02/24/24 History amLODIPine BESYLATE [Norvasc] 10 mg PO DAILY 03/07/18 02/24/24 History traMADol HCL [Ultram] 50 mg PO DAILY PRN 03/07/18 02/24/24 History Omeprazole 20 mg PO DAILY 02/11/23 02/24/24 History Allergies Allergy/AdvReac Type Severity Reaction Status Date / Time No Known Allergies Allergy Verified 02/24/24 13:33 Objective - Constitutional General appearance: Present: cooperative - EENT Eyes: Present: EOMI ENT: Present: hearing grossly normal - Neck Neck: Present: normal ROM - Respiratory Respiratory: bilateral: CTA - Cardiovascular Heart sounds: normal: S1, S2 - Gastrointestinal General gastrointestinal: Present: soft - Integumentary Integumentary: Present: normal turgor - Musculoskeletal Musculoskeletal: Present: gait normal - Psychiatric Psychiatric: Present: A&O x's 3, appropriate affect, intact judgment & insight - Additional findings Additional findings: Breast Exam: BRA: 38C Inspection: Bilateral grade 1 ptosis Palpation: Right breast: Multi positional exam no dominant masses or nodules of concern Right axilla: No adenopathy of concern Left breast: Multi positional exam no dominant masses or nodules of concern Left axilla: No adenopathy of concern Biopsy site right breast clean and dry no evidence of infection or hematoma Assessment and Plan Assessment: Impression: Radiographic abnormality right breast/consistent with intraductal papilloma, however this is approximately a centimeter in size and question bleed discordant Plan: Right breast needle localization lumpectomy with possible oncoplastic tissue transfer Risk and benefits of the procedure discussed with the patient. Risk include but are not limited to bleeding, infection, reaction to the anesthetic. If the tissue acquisition were felt to be discordant then further tissue acquisition may be necessary at a later time. Additionally if the needle were to slip or the marker were to move it is possible that the area of concern would not be sampled and we would have to get more tissue at a later time. The patient understands and wishes to proceed. CC: Dr. Moses
== END ==
LOC: WWCWWP 14:14
PROVIDERS: ATTEND Surgery
DX: R92.8 Other abnormal and inconclusive findings on diagnostic imaging of breast (principal); D24.1 Benign neoplasm of right breast; F17.210 Nicotine dependence, cigarettes, uncomplicated

== ENCOUNTER 2024-05-15 07:04 | Day surgery (SDC) | payer MEDICAID ==
[2024-05-10 14:32] VITALS: BMI 26.0
[2024-05-15] MEDS ORDERED: MIDAZOLAM 2 MG/2 ML VIAL IV PRN (07:36)
[2024-05-15] MEDS ORDERED: fentaNYL (PF) 50 MCG/ML 2 ML AMP IVP PRN (07:36)
[2024-05-15] MEDS ORDERED: LIDOCAINE 1% (10MG/ML) FOR IV START INTRADERMA PRN (07:36)
[2024-05-15] MEDS: LACTATED RINGERS 1,000 ML IV SCH (08:13)
[2024-05-15] MEDS: ALPRAZolam 0.5 MG TAB PO PRN (08:14)
[2024-05-15] MEDS: IV FLUID CONTINUATION 1,000 ML IV ONE (08:16)
[2024-05-15 09:33] VITALS: TEMP 98.1
[2024-05-15] MEDS: LIDOCAINE 1% INJ 10MG/ML (20 ML MDV) SQ ONE ×2 (09:33→11:20)
[2024-05-15] MEDS ORDERED: fentaNYL (PF) 50 MCG/ML 2 ML AMP ONE (10:39)
[2024-05-15] MEDS: HEPARIN SODIUM,PORCINE 5,000 UNIT/ML 1 ML VIAL SQ PRN (10:39)
[2024-05-15] MEDS: DEXAMETHASONE SOD PHOSPHATE 4 MG/ML 1 ML VIAL IV ONE (10:39)
[2024-05-15] MEDS ORDERED: LIDOCAINE 1% INJ 10MG/ML (20 ML MDV) ONE (10:39)
[2024-05-15] MEDS ORDERED: MIDAZOLAM 2 MG/2 ML VIAL ONE (10:39)
[2024-05-15] MEDS ORDERED: SUCCINYLCHOLINE CHLORIDE 200 MG/10 ML VIAL IV ONE (10:39)
[2024-05-15] MEDS ORDERED: PROPOFOL 10 MG/ML 20 ML VIAL IV ONE (10:39)
[2024-05-15] MEDS: ACETAMINOPHEN TAB 500 MG TAB PO PRN (10:39)
[2024-05-15] MEDS: ONDANSETRON 4 MG/2 ML VIAL IVP ONE (10:39)
--- NOTE | 2024-05-15 11:32 | P.BCAON ---
Date of Procedure: 05/15/24 Preoperative Diagnosis: discordant intraductal papilloma Postoperative Diagnosis: same Procedure(s) Performed: needle localization lumpectomy of site Anesthesia: YOLIA Surgeon: Dilcia Alvarez Pathology: other (breast tissue) Condition: stable Disposition: same day Indications for Procedure: discordant core biopsy Operative Findings: breat tissue with clip Description of Procedure: Patient was seen in radiology and localization of area of concern was done. She was taken to OR and after induction of anesthesia the breast was prepped and draped in a sterile fashion. An incision was made and carried to the tip of the needle. The tissue was resected. Hemostatis was maintained using the cautery. The specimen was painted for orientation and an xray confirmed the area of concern was removed. The deep tissues were closed with a 3-0 vicryl suture. The skin was closed with a monocrile suture. 10 cc of 1% lidocaine was injected into the incision. surgical glue was placed. The patient tolerated the procedure in stable condition.
[2024-05-15] MEDS: HYDROmorphone 0.5 MG/0.5 ML SYRINGE IVP PRN (11:50)
[2024-05-15 13:50] VITALS: BP 122/81; PULSE 64; RESP 18
== END 2024-05-15 13:51 | disposition home or self-care (01) ==
LOC: OR 07:04
PROVIDERS: ATTEND Surgery
DX: N60.21 Fibroadenosis of right breast (principal); D24.1 Benign neoplasm of right breast
CPT/HCPCS: 88307; 76098; 19281; 19301; J2250; J0330; J1644; J1100; J0690; J2405; J2001; J3010; J2704; J1170

== ENCOUNTER → 2024-05-31 | Outpatient (CLI) | payer MEDICAID ==
[2024-05-31 11:31] VITALS: BP 132/87; PULSE 76; RESP 17; TEMP 98.3
--- NOTE | 2024-05-31 11:40 | P.BCPO ---
Progress Note - Text Progress Note Date: 05/31/24 Kristy is status post right breast needle localization and resection on 05-15-24. This was for an intraductal papilloma. Postoperatively she did well without complaints Examination: Lungs: Clear Heart: Regular rate and rhythm Incision clean and dry Impression: Intraductal papilloma right breast status post excision Plan: Right breast mammogram in 6 months with examination at that time CC: Dr. Moses Post Op Education - Post Op Education Post Op Education Provided Date: 05/31/24 - Functional Assessment Performed?: Yes (passed arm abduction)
== END ==
LOC: WWCWWP 11:00
PROVIDERS: ATTEND Surgery
DX: D24.1 Benign neoplasm of right breast (principal); F17.200 Nicotine dependence, unspecified, uncomplicated; Z98.890 Other specified postprocedural states

== ENCOUNTER → 2025-01-23 | Outpatient (CLI) | payer MEDICAID ==
--- NOTE | 2025-01-23 07:38 | MM ---
Reason for Exam: Follow-up at short interval from prior study. Last screening mammogram was performed 12 month(s) ago. Patient History: Menarche at age 15. Patient has no children. Postmenopausal. Previous Hyperplasia w/o Atypia at age 54. 05/15/2024, Benign MG pre op needle loc RT on the right side. 02/09/2024, High risk US biopsy breast VAD RT on the right side. Risk Values: Marti 5 year model risk: 1.8%. NCI Lifetime model risk: 14.0%. Prior Study Comparison: 10/05/2016 Bilateral Screening Mammogram, [facility]. 01/22/2019 Bilateral Screening Mammogram, [facility]. 12/30/2022 Bilateral MG 3D screening mammo w/cad, [facility]. 01/30/2024 Bilateral MG 3D diag mammo w/cad [facility], [facility]. 01/30/2024 Right US breast limited RT, [facility]. 02/09/2024 Right MG diagnostic mammo RT wo CAD, [facility]. Tissue Density: The breasts are heterogeneously dense, which may obscure small masses. Findings: Analyzed By CAD. Regional punctate and round calcifications bilaterally. Interval excisional changes on the right. Nodular asymmetry central posterior left MLO view does not persist on additional views. No significant change from prior exams. Overall Assessment: Benign, BI-RAD 2 Management: Screening Mammogram of both breasts in 1 year. Results were given to the patient verbally at the time of exam. Patient should continue monthly self-breast exams. A clinical breast exam by your physician is recommended on an annual basis. This exam should not preclude additional follow-up of suspicious palpable abnormalities. Note on Marti scores and lifetime risk: 1. A Marti score greater than 3% is considered moderate risk. If this is the case, consider specialist referral to assess eligibility for a risk reducing agent. 2. If overall lifetime risk for the development of breast cancer is 20% or higher, the patient may qualify for future screening with alternating mammogram and breast MRI. [facility], , 01/23/2025 7:36 AM. Electronically signed and approved by: Evaristo Oscar M.D. Radiologist
== END | disposition home or self-care (01) ==
LOC: RADMAMWWP 06:59
PROVIDERS: ATTEND Surgery
DX: R92.8 Other abnormal and inconclusive findings on diagnostic imaging of breast (principal); R92.333 Mammographic heterogeneous density, bilateral breasts; Z78.0 Asymptomatic menopausal state
CPT/HCPCS: 77062; 77066

== ENCOUNTER → 2025-01-23 | Outpatient (CLI) | payer MEDICAID ==
--- NOTE | 2025-01-23 08:14 | US ---
EXAMINATION TYPE: US liver DATE OF EXAM: 01/23/2025 COMPARISON: US 2023 CLINICAL INDICATION: Female, 54 years old with history of K76.89 LIVER NODULE; Liver nodule TECHNIQUE: Grayscale and color Doppler imaging of the right upper quadrant. FINDINGS: EXAM MEASUREMENTS: Liver Length: 14.3 cm Gallbladder Wall: 0.18 cm CBD: 0.48 cm, color Doppler imaging was utilized to isolate the common bile duct for measurement. 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 Pancreas: Tail was not visualized. Liver: *Increased echogenicity, appears coarse. Hypoechoic area seen within the liver anteriorly: 1.4 x 2.2 x 0.9 cm. Hypoechoic area seen adjacent to the gallbladder: 1.0 x 1.3 x 0.7 cm. Gallbladder: Multiple hyperechoic areas seen within the gallbladder that appear to be attached to the gallbladder wall. Slightly limited due to gas. Evidence for sonographic Sheldon's sign: No CBD: Appears wnl Right Kidney: *Anechoic area seen lower: 1.8 x 2.1 x 1.5 cm. *Hyperechoic focus seen lower: 0.5 x 0.6 x 0.3 cm. The visualized portions of the pancreas are unremarkable. The liver demonstrates diffuse increased ec hogenicity with coarse echotexture. There is a hypoechoic area seen within the liver anteriorly measu ring up to 2.2 cm. Additional hypoechoic area seen adjacent to the gallbladder. Few gallbladder polyp s identified measuring up to 0.5 cm. No shadowing calculi or wall thickening. No surrounding fluid. N egative sonographic Sheldon sign. Common bile duct appears within normal limits. Right kidney demonstr ates a simple cyst measuring up to 2.1 cm. Nonobstructing shadowing calculus within the lower pole me asuring up to 0.6 cm. IMPRESSION: 1. No ultrasound evidence for acute process. 2. Hepatic steatosis with 2 hypoechoic regions which possibly represent focal fatty sparing versus ot her etiologies. Recommend further evaluation with MR abdomen with liver mass protocol. 3. A few gallbladder polyps measuring up to 0.5 cm. Follow-up ultrasound in 6 months is recommended t o assess for stability. 4. Nonobstructing right renal calculus. [facility], , 01/23/2025 8:12 AM
== END | disposition home or self-care (01) ==
LOC: RADUSWWP 07:02
PROVIDERS: ATTEND Internal Medicine
DX: K76.0 Fatty (change of) liver, not elsewhere classified (principal); N20.0 Calculus of kidney; K82.4 Cholesterolosis of gallbladder
CPT/HCPCS: 76705

== ENCOUNTER → 2025-02-13 | Outpatient (CLI) | payer MEDICAID ==
--- NOTE | 2025-02-13 09:38 | MR ---
EXAMINATION TYPE: MR liver wo/w con DATE OF EXAM: 02/13/2025 8:16 AM COMPARISON: Ultrasound liver January 23, 2025 CLINICAL INDICATION: Female, 55 years old with history of K76.89 LIVER NODULE, R/O Liver Mass, abnorm al US IV Contrast: 7 cc Gadobutrol (None if empty) CONTRAST: Standard multiplanar, multisequence MRI departmental protocol images were obtained without contrast a nd with 7 mL intravenous Gadobutrol gadolinium contrast. Imaging performed of the abdomen focusing o n the liver. FINDINGS: Liver: Liver is normal in size. There is mild diminished signal on in and out of phase images consist ent with mild diffuse fatty infiltration. In the left hepatic lobe anteriorly there is 1.7 x 1.2 cm s imple appearing thin-walled cysts series 701 image 46. There is with additional 9 x 6 mm thin-walled cyst adjacent to gallbladder fossa axial image 33.. There are approximately 5 additional sub-5 mm thi n-walled cysts scattered throughout the remainder of the liver. Dynamic postcontrast imaging shows no suspicious enhancing solid masses. No biliary dilatation. No ascites. Other: Lung bases are grossly clear. The spleen and pancreas appear within normal limits. Adrenal gla nds are unremarkable. There are 2 small right renal cysts measuring up to 1.4 cm in size. No hydronep hrosis seen bilaterally. No suspicious bowel dilatation. Some scattered colonic diverticula are prese nt. No AAA. Osseous structures are intact. No definitive internal gallstones. IMPRESSION: Mild diffuse fatty infiltration of liver. There are several small thin-walled cysts scatt ered throughout the liver. No concerning solid intrahepatic masses are identified. [facility], , 02/13/2025 9:36 AM
== END | disposition home or self-care (01) ==
LOC: RADMRIMAIN 07:16
PROVIDERS: ATTEND Internal Medicine
DX: K76.0 Fatty (change of) liver, not elsewhere classified (principal); K76.89 Other specified diseases of liver
CPT/HCPCS: 74183; A9585

== ENCOUNTER → 2025-05-11 | Outpatient (CLI) | payer MEDICAID ==
--- NOTE | 2025-05-12 09:19 | MR ---
EXAMINATION TYPE: MR shoulder RT wo con DATE OF EXAM: 05/11/2025 7:45 PM COMPARISON: 08/17/2017 CLINICAL INDICATION: Female, 55 years old with history of M25.511 PAIN RT SHOULDER, Right shoulder pa in due to lifting injury 6 weeks ago, history of surgery. IV Contrast: cc (None if empty) TECHNIQUE: Multiplanar, multisequence imaging of the right shoulder is performed without contrast. FINDINGS: There are postsurgical changes in the right humeral head consistent with rotator cuff repair. There is a full-thickness tear of the supraspinatus tendon at the musculotendinous tendinous junction with mild retraction medially. The infraspinatus and supraspinatus tendons are intact. There are a few subchondral cysts in the jacky ral head fracture. There are moderate degenerative changes in the AC joint with edema consistent with degree of acute in flammation. The biceps tendon is normal in signal intensity and position within the bicipital groove and the justin ps anchor is intact. There is no tear of the cartilaginous labrum. IMPRESSION: 1. Postsurgical changes of prior rotator cuff repair. 2. Full-thickness tear of the supraspinatus with mild retraction medially. 3. Degenerative changes in the AC joint as described above. 4. Normal biceps tendon and cartilaginous labrum. [facility], , 05/12/2025 9:17 AM
== END | disposition home or self-care (01) ==
LOC: RADMRIMAIN 19:30
PROVIDERS: ATTEND Internal Medicine
DX: M75.111 Incomplete rotator cuff tear or rupture of right shoulder, not specified as traumatic (principal); M19.011 Primary osteoarthritis, right shoulder; Z98.890 Other specified postprocedural states

== ENCOUNTER → 2025-05-22 | Outpatient (CLI) | payer MEDICAID ==
[2025-05-22 15:14] LABS: Basophils # (A) 0.04 X 10*3/uL (0.00-0.10); Basophils % (A) 0.5 %; Eosinophils # (A) 0.10 X 10*3/uL (0.04-0.35); Eosinophils % (A) 1.2 %; HCT 41.3 % (37.2-46.3); HGB 13.7 g/dL (12.0-15.0); Immature Grans, Automated 0.20 %; Lymphocytes # (A) 2.47 X 10*3/uL (0.90-5.00); Lymphocytes % (A) 30.3 %; MCH 32.5 pg (27.0-32.0); MCHC 33.2 g/dL (32.0-37.0); MCV 97.9 FL (80.0-97.0); Monocytes # (A) 0.69 X 10*3/uL (0.20-1.00); Monocytes % (A) 8.5 %; NRBC Per 100 WBC 0 X 10*3/uL (0.00-0.01); Neutrophils # (A) 4.82 X 10*3/uL (1.80-7.70); Neutrophils % (A) 59.3 %; Platelet Count 247 X 10*3/uL (140-440); RBC 4.22 X 10*6/uL (4.10-5.20); RDW 13.3 % (11.5-14.5); WBC 8.14 X 10*3/uL (4.50-10.00)
[2025-05-22 15:25] LABS: BUN/Creat Ratio 16.57 Ratio (12.00-20.00); Blood Urea Nitrogen 11.6 mg/dL (9.0-27.0); Glucose 110 mg/dL (70-110)
[2025-05-22 15:26] LABS: Anion Gap 14.00 mmol/L (4.00-12.00); Carbon Dioxide 25.0 mmol/L (21.6-31.8); Chloride 102 mmol/L (96-109); Potassium 4.2 mmol/L (3.5-5.5); Sodium 141 mmol/L (135-145)
[2025-05-22 15:27] LABS: Calcium 10.1 mg/dL (8.7-10.3)
== END | disposition home or self-care (01) ==
LOC: LABPAT 12:27
PROVIDERS: ATTEND Orthopaedic Surgery
DX: Z01.818 Encounter for other preprocedural examination (principal); M75.41 Impingement syndrome of right shoulder
CPT/HCPCS: 80048; 85025; 93005

== ENCOUNTER 2025-06-07 06:49 | Day surgery (SDC) | payer MEDICAID ==
--- NOTE | 2025-06-06 09:12 | P.HPOR ---
History of Present Illness H&P Date: 06/06/25 Chief Complaint: Right shoulder pain The patient is a 55-year-old female who presents with right shoulder pain after an injury in March of this year. She is having pain with overhead activity and at night. She notes she had arthroscopic rotator cuff repair in 2018 and had been doing well up until this point. Review of Systems Per HPI Past Medical History Past Medical History: Chest Pain / Angina, GERD/Reflux, Hypertension, Musculoskeletal Disorder Additional Past Medical History / Comment(s): injured shoulder in March, past hx. 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 History of Any Multi-Drug Resistant Organisms: None Reported Past Surgical History: Breast Surgery, Heart Catheterization, Orthopedic Surgery Additional Past Surgical History / Comment(s): Right rotator cuff surgery, benign lump removed right breast Past Anesthesia/Blood Transfusion Reactions: No Reported Reaction, Motion Sickness Additional Past Anesthesia/Blood Transfusion Reaction / Comment(s): no hx. bloo Smoking Status: Current every day smoker - Past Family History Father Family Medical History: No Reported History Medications and Allergies Home Medications Medication Instructions Recorded Confirmed Type amLODIPine BESYLATE [Norvasc] 10 mg PO QAM 03/07/18 06/05/25 History traMADol HCL [Ultram] 50 mg PO BID PRN 03/07/18 06/05/25 History Omeprazole 40 mg PO QAM 05/10/24 06/05/25 History Allergies Allergy/AdvReac Type Severity Reaction Status Date / Time No Known Allergies Allergy Verified 06/05/25 10:35 Physical Examination - Shoulder right Tenderness with palpation: anterior, bicipital groove Pain: with forward flexion ROM: abduction: 140 degrees ROM: internal rotation: upper lumbar ROM: external rotation: 60 degrees Crepitus with motion: Yes Strength: abduction: 4/5 Strength: external rotation: 4/5 Tests: internal impingement tests: positive, external impingment tests: positive Results The patient is a well-developed well-nourished female approximately 5 foot 3, 147 pounds of mesomorphic habitus. HEENT exam is nonfocal, neck is supple. She is tender about the right shoulder anterior subacromial space. Moderate c repitus is noted. Impingement test, Neer sign are positive. Her distal neurovascular exam appears intact in the right upper extremity. - Diagnostic results Shoulder MRI: image reviewed (MRI of the right shoulder obtained the office show cystic appearance of the humeral head with diminished humeral head to acromial distance. A full-thickness rotator cuff tear involving supraspinatus with some retraction is noted.) Assessment and Plan Assessment: History of right rotator cuff repair with retear Plan: I talked to the patient at length regarding her condition along with treatment options. She is quite symptomatic after this acute injury. After a thorough discussion she have to proceed with surgery. We will plan to proceed with right shoulder arthroscopy with possible revision rotator cuff repair versus debridement in addition to possible biceps tenotomy versus tenodesis. Risks and benefits were discussed at length in layman's terms. We will likely perform that as an outpatient procedure.
[2025-06-07] MEDS ORDERED: HYDROmorphone 0.5 MG/0.5 ML SYRINGE IVP PRN (07:04)
[2025-06-07] MEDS ORDERED: droPERidol 2.5 MG/ML VIAL IVP ONE (07:04)
[2025-06-07] MEDS ORDERED: LIDOCAINE 1% (10MG/ML) FOR IV START INTRADERMA PRN (07:04)
[2025-06-07] MEDS: IV FLUID CONTINUATION 1,000 ML IV ONE (07:27)
[2025-06-07] MEDS: LACTATED RINGERS 1,000 ML IV SCH (07:28)
[2025-06-07] MEDS: DEXAMETHASONE SOD PHOSPHATE 4 MG/ML 1 ML VIAL IV ONE (07:34)
[2025-06-07] MEDS: ONDANSETRON 4 MG/2 ML VIAL IVP ONE (07:34)
[2025-06-07] MEDS: MIDAZOLAM 2 MG/2 ML VIAL IV ONE (07:49)
[2025-06-07] MEDS: fentaNYL (PF) 50 MCG/ML 2 ML AMP IVP STA (07:49)
[2025-06-07] MEDS ORDERED: SUCCINYLCHOLINE CHLORIDE 200 MG/10 ML VIAL IV ONE (08:43)
[2025-06-07] MEDS ORDERED: ONDANSETRON 4 MG/2 ML VIAL ONE (08:43)
[2025-06-07] MEDS ORDERED: MIDAZOLAM 2 MG/2 ML VIAL ONE (08:43)
[2025-06-07] MEDS ORDERED: ROPIVACAINE 5 MG/ML 30 ML VIAL ONE (08:43)
[2025-06-07] MEDS ORDERED: GLYCOPYRROLATE 0.2 MG/ML 2 ML VIAL ONE (08:43)
[2025-06-07] MEDS ORDERED: LIDOCAINE 1% INJ 10MG/ML (20 ML MDV) ONE (08:43)
[2025-06-07] MEDS ORDERED: PHENYLEPHRINE 10 MG/ML VIAL ONE (08:43)
[2025-06-07] MEDS ORDERED: LIDOCAINE 4% LTA KIT (4 ML) TOPICAL ONE (08:43)
[2025-06-07] MEDS ORDERED: fentaNYL (PF) 50 MCG/ML 2 ML AMP ONE (08:43)
[2025-06-07] MEDS ORDERED: PROPOFOL 10 MG/ML 20 ML VIAL IV ONE (08:43)
[2025-06-07] MEDS ORDERED: DEXAMETHASONE SOD PHOSPHATE 4 MG/ML 1 ML VIAL ONE (08:43)
[2025-06-07 10:08] VITALS: TEMP 96.9
--- NOTE | 2025-06-07 10:08 | P.OP ---
Date of Procedure: 06/07/25 Preoperative Diagnosis: Right rotator cuff retear Postoperative Diagnosis: 3 cm rotator cuff tearretracted, Procedure(s) Performed: Right shoulder arthroscopic rotator cuff repair/biceps tenotomy Implants: Arthrex 4.75 mm swivel lock anchor x 1, 5.5 mm swivel lock anchor x 1 Anesthesia: ramu CAM Surgeon: Ventura Herman Grain Handler #1: Glen Mccormack Estimated Blood Loss (ml): 10 Pathology: none sent Condition: stable Disposition: PACU Indications for Procedure: The patient is a 55-year-old female who presents with progressive right shoulder pain and weakness after a recent injury. She has a history of a previous rotator cuff repair. A discussion of the risks and benefits of continued conservative measures versus operative intervention was made with the patient. She opted to proceed with surgery. Operative risks include infection, neurovascular injury, development of blood clots, possible tendon rerupture, possible postoperative stiffness, and possible need for subsequent procedures was discussed. Informed consent was obtained. Operative Findings: As below Description of Procedure: The patient was brought to the operating room, and after induction of general anesthesia was placed in a beachchair position. A preoperative interscalene block was placed for postoperative analgesia. I examined the right shoulder. There was no gross block to passive motion or gross glenohumeral instability. The right upper extremity was prepped and draped in normal fashion. The bony outlines the acromion, distal clavicle, and coracoid process were outlined with a skin marker. The glenohumeral joint was inflated with 50 mL of saline utilizing a spinal needle from posterior approach. A posterior portal was made through a 5 mm skin incision 1 cm medial and inferior to the posterior lateral border time. A blunt trocar was used to easily into the joint. Diagnostic arthroscopy was performed. An anterior portal was made just lateral to the coracoid process entering the joint above the subscapularis tendon. The subscapularis tendon appeared to be intact. Anterior labrum was intact. The inferior recess was inspected. The posterior labrum was intact. There was a high-grade partial-thickness tear of the long head of the biceps involving interarticular portion. It was elected to proceed with release at this point. This was released from the superior labrum with electrocautery and was allowed to retract to the bicipital groove. On inspection the rotator cuff, a full- thickness retracted tear involving the supraspinatus was noted. The failure was noted medial to the previous repair. The posterior rotator cuff appeared to be intact involving the infraspinatus and teres minor. The arthroscope was placed into the subacromial space. A lateral portal was made 2 centimeters inferior to the anterior lateral border of the acromion. The rotator cuff was then mobilized with a traction suture. I was able to obtain partial coverage of the greater tuberosity with this. A starting awl was used just off the articular surface. 4.75 mm anchors preloaded with #2 fiber tape were placed. Good purchase was obtained. These fiber tapes were then passed the rotator cuff with a scorpion suture passer. I also passed a fiber link anteriorly to improve coverage. A lateral row was created crisscrossing these tapes. A 5.5 mm swivel lock anchor was placed laterally after appropriate tensioning of the sutures. Good purchase was obtained. Final arthroscopic view showed improved coverage of the greater tuberosity. The arthroscope was then removed. The portals were closed with simple 3-0 nylon sutures. A sterile dressing was applied in addition to an abductor brace. The patient was then awoken from general anesthesia and transferred to recovery room in good condition. Blood loss was estimated at 10 mL. No complications were incurred. Sponge and needle counts were correct in the case. Glen CHATMAN assisted and the major components of the case to include arm positioning, anchor placement, and rotator cuff repair.
--- NOTE | 2025-06-07 10:58 | P.ANPRN ---
Procedure Note - Anesthesia - Nerve Block Performed Right Interscalene Single Time Out Performed: Yes (0748) Date of Procedure: 06/07/25 Procedure Start Time: 07:49 Procedure Stop Time: 07:54 Location of Patient: PreOp Indication: Acute Post-Operative Pain, Requested by Surgeon Specifically requested for management of pain by : Ventura Herman Sedation Type: Sedate with meaningful contact maintained Preparation: Sterile Prep Position: Supine Catheter: None Needle Types: Pajunk Needle Gauge: 21 Ultrasound used to visualize needle placement: Yes Ultrasound used to observe medication spread: Yes Injectate: 0.5% Ropivacaine (see comment for volume) (30cc+decadron 4mg) Blood Aspirated: No Pain Paresthesia on Injection Noted: No Resistance on Injection: Normal Image Stored and Saved: Yes Events: Uneventful and Well Tolerated
[2025-06-07 11:17] VITALS: RESP 16
[2025-06-07 11:33] VITALS: BP 127/85; PULSE 94
== END 2025-06-07 12:01 | disposition home or self-care (01) ==
LOC: OR 06:49
PROVIDERS: ATTEND Orthopaedic Surgery
DX: S46.011A Strain of muscle(s) and tendon(s) of the rotator cuff of right shoulder, initial encounter (principal); G89.18 Other acute postprocedural pain; I10 Essential (primary) hypertension; I25.119 Atherosclerotic heart disease of native coronary artery with unspecified angina pectoris; K21.9 Gastro-esophageal reflux disease without esophagitis; F17.200 Nicotine dependence, unspecified, uncomplicated; Z79.899 Other long term (current) drug therapy; Z98.890 Other specified postprocedural states; X58.XXXA Exposure to other specified factors, initial encounter
CPT/HCPCS: 29827; 64415; C1713; C1894; J2250; J0330; J1100; J0690; J2405; J2003; J3010; J2795; J2704; J2371; J1596